=== PATIENT | female | born 1970 | race Caucasian/White ===

== ENCOUNTER 2016-07-16 18:24 | Emergency (ER) | payer OTHER ==
[~2016-07-16] VITALS: Ht 172.7 cm; Wt 56.7 kg
[2016-07-16 19:21] VITALS: BP 117/75
[2016-07-16] MEDS ORDERED: LOSARTAN-HCTZ1 EAC1 PO (19:42)
[2016-07-16] MEDS ORDERED: DICLOFENAC POTA50 M1 PO (19:43)
--- NOTE | 2016-07-16 19:47 | ED GENERAL ADULT ---
History of Present Illness General Chief Complaint: General Adult Stated Complaint: PAIN MEDICINE REQUEST Source: patient Exam Limitations: no limitations Vital Signs & Intake/Output Vital Signs & Intake/Output Vital Signs Date Time Temp Pulse Resp B/P Pulse O2 O2 Flow FiO2 Ox Delivery Rate 07/16 1921 98.2 78 18 117/75 98 Room Air ED Intake and Output 07/17 0000 07/16 1200 Intake Total Output Total Balance Patient 125 lb Weight Allergies Coded Allergies: No Known Allergies (07/16/16) Reconcile Medications Diclofenac Potassium 50 MG TABLET 1 TAB PO TIDPRN UN (Reported) Losartan/Hydrochlorothiazide (Losartan-Hctz 50-12.5 MG Tab) 50 MG-12.5 MG TABLET 1 TAB PO DAILY HTN (Reported) Oxycodone HCl/Acetaminophen (Percocet 5-325 MG Tablet) 5 MG-325 MG TABLET 1 TAB PO 4XDP PRN PAIN six...[id number] Triage Note: RECEIVED 46 YO FEMALE S/O SURGURY ON LEFT HAND 2 YEARS AGO. STILL IN PAIN. PMD SENT PT TO ED BECAUSE HE IS UNABLE TO FURTHER PRESCRIBE PAIN MEDS. PT RAN OUT OF 5 MG OXYCODONES ON SUNDAY. PT REPORTS CHRONIC L HAND PAIN Triage Nurses Notes Reviewed? yes Onset: Gradual Duration: week(s):, waxing and waning Timing: recent history Injury Environment: home Severity: moderate Modifying Factors: Improves With: rest. Worsens With: movement. Associated Symptoms: left wrist pain. "I ran out of meds." : No Patient currently breastfeeds: No HPI: 46-year-old woman with history of left wrist pain status post carpal tunnel surgery repair several years ago, presents with left wrist pain. She states that her primary care doctor no longer is able to prescribe her narcotics. She has not yet had her appointment with the pain management center. She notes that she ran out of her Percocet, "and my doctor told me to come to the emergency department." She notes no new trauma. She notes the pain has been stable. She notes her pain is usually better with Percocet as needed. She is otherwise well. Past History Travel History Traveled to [place] past 21 day No Medical History Any Pertinent Medical History? see below for history Neurological: NONE EENT: NONE Cardiovascular: NONE Respiratory: NONE Gastrointestinal: NONE Hepatic: NONE Renal: NONE Musculoskeletal: NONE Psychiatric: NONE Endocrine: NONE Surgical History Surgical History: left carpal tunnel surgery Psychosocial History What is your primary language Egyptian Tobacco Use: Current Daily Use Daily Tobacco Use Amount/Type: => 5 Cigarettes daily Family History Hx Contributory? No Review of Systems Review of Systems Constitutional: Reports: no symptoms. EENTM: Reports: no symptoms. Respiratory: Reports: no symptoms. Cardiovascular: Reports: no symptoms. GI: Reports: no symptoms. Genitourinary: Reports: no symptoms. Musculoskeletal: Reports: no symptoms. Skin: Reports: no symptoms. Neurological/Psychological: Reports: no symptoms. Hematologic/Endocrine: Reports: no symptoms. Immunologic/Allergic: Reports: no symptoms. All Other Systems: Reviewed and Negative Physical Exam Physical Exam General Appearance: well developed/nourished, mild distress Head: atraumatic, normal appearance Eyes: Bilateral: normal appearance. Neck: normal inspection, supple, full range of motion Respiratory: normal breath sounds, chest non-tender, no respiratory distress Cardiovascular: regular rate/rhythm Gastrointestinal: normal bowel sounds, soft Extremities: left wrist with Phalen and Tinel's sign positive. No deformity. Light touch intact 2+ distal pulse. Neurologic/Psych: no motor/sensory deficits, awake, alert, oriented x 3 Skin: intact, normal color, warm/dry Core Measures ACS in differential dx? No CVA/TIA Diagnosis: No Severe Sepsis Present: No Septic Shock Present: No Progress Differential Diagnoses I considered the following diagnoses in my evaluation of the patient: Chronic pain versus other Plan of Care: I gave patient a bridge prescription of Percocet. She can follow-up with her primary care doctor in the pain management clinic. Initial ED EKG: none Departure Departure Disposition: HOME OR SELF CARE Condition: Stable Clinical Impression Primary Impression: Chronic pain Referrals: SEMAJ RANDOLPH MD (PCP/Family) Departure Forms: Customer Survey General Discharge Information Prescriptions: Current Visit Scripts Oxycodone HCl/Acetaminophen (Percocet 5-325 MG Tablet) 1 TAB PO 4XDP PRN PAIN #6 TAB six...[id number] Critical Care Note Critical Care Note Critical Care Time: non-applicable
[2016-07-16] MEDS ORDERED: PERCOCET 5-3251 EACH PO (19:51)
== END 2016-07-16 19:57 ==
LOC: ERH 18:24
DX: G89.29 Other chronic pain (principal)
CPT/HCPCS: 99281

== ENCOUNTER 2016-08-31 18:40 | Emergency (ER) | payer OTHER ==
[~2016-08-31 18:40] MED LIST: DICLOFENAC POTA50 M1 PO; LOSARTAN-HCTZ1 EAC1 PO; PERCOCET 5-3251 EACH PO
[2016-08-31 19:09] VITALS: BP 113/77
[2016-08-31] MEDS ORDERED: PERCOCET 5-3251 EACH PO (20:31)
--- NOTE | 2016-08-31 20:32 | ED UPPER/LOWER EXTREMITY COMPL ---
History of Present Illness General Chief Complaint: Hand or Wrist Injury Stated Complaint: REQUESTING PAIN MEDICATION; WRIST PAIN Source: patient, old records Exam Limitations: no limitations Vital Signs & Intake/Output Vital Signs & Intake/Output Vital Signs Date Time Temp Pulse Resp B/P Pulse O2 O2 Flow FiO2 Ox Delivery Rate 08/31 1909 78 20 113/77 98 Room Air Allergies Coded Allergies: No Known Allergies (07/16/16) Reconcile Medications Diclofenac Potassium 50 MG TABLET 1 TAB PO TIDPRN UN (Reported) Losartan/Hydrochlorothiazide (Losartan-Hctz 50-12.5 MG Tab) 50 MG-12.5 MG TABLET 1 TAB PO DAILY HTN (Reported) Oxycodone HCl/Acetaminophen (Percocet 5-325 MG Tablet) 5 MG-325 MG TABLET 1 TAB PO 4XDP PRN PAIN six...[id number] Oxycodone HCl/Acetaminophen (Percocet 5-325 MG Tablet) 5 MG-325 MG TABLET 1 TAB PO 4 TIMES/DAY PRN pain Triage Note: PER PT HERE FOR PAIN MEDS FOR WRIST. CHRONIC PAIN NEEDS MORE MEDS. Triage Nurses Notes Reviewed? yes : No Patient currently breastfeeds: No HPI: Chronic left wrist pain. She is here because her primary care doctor is no longer prescribe her pain medication and she is requesting Percocet. She has previously had orthopedic surgery on her left wrist for carpal tunnel release and arthroscopic surgery on her wrist. She wears a brace occasionally. Orthopedist does not feel so they can do anything further for her and her primary care doctor was prescribing Percocet for her but is no longer able to do that. She has no recent injury or worsening pain, no numbness or weakness or neurologic symptoms. No swelling or skin surface changes. No redness. (MUSA MILTON) Past History Travel History Traveled to [place] past 21 day No Medical History Any Pertinent Medical History? see below for history Neurological: NONE EENT: NONE Cardiovascular: NONE Respiratory: NONE Gastrointestinal: NONE Hepatic: NONE Renal: NONE Musculoskeletal: NONE Psychiatric: NONE Endocrine: NONE Surgical History Surgical History: left carpal tunnel surgery Psychosocial History What is your primary language Divehi Tobacco Use: Current Daily Use Daily Tobacco Use Amount/Type: => 5 Cigarettes daily Family History Hx Contributory? No (MUSA MILTON) Review of Systems Review of Systems Constitutional: Reports: see HPI. EENTM: Reports: no symptoms. Respiratory: Reports: no symptoms. Cardiovascular: Reports: no symptoms. Gastrointestinal/Abdominal: Reports: no symptoms. Genitourinary: Reports: no symptoms. Musculoskeletal: Reports: see HPI. Skin: Reports: no symptoms. Neurological/Psychological: Reports: no symptoms. Hematologic/Endocrine: Reports: no symptoms. Immunological: Reports: no symptoms. All Other Systems: Reviewed and Negative (MUSA MILTON) Physical Exam Physical Exam General Appearance: well developed/nourished Comments: Well-developed well-nourished no apparent distress. HEENT: Atraumatic, extraocular motion intact Neck: Supple, no lymphadenopathy Back: Nontender Respiratory: No respiratory distress Extremities: No edema, full range of motion Neuro: Alert and oriented x3 Psych: Mood affect normal, normal memory normal judgment. Skin: Warm and dry, no rash on exposed skin Left wrist: skin is intact, well-healed scars to the carpal tunnel region and arthrotomy scars for arthroscopic surgery. No swelling no erythema no warmth no significant bony tenderness, no effusion. Range of motion is full. Neurovascularly intact. (MUSA MILTON) Progress Differential Diagnosis: arterial insufficiency, cellulitis, CHF, compartment syndrome, contusion, dislocation, DVT, fracture, gout, septic arthritis, sprain, tendon injury Plan of Care: Will provide 10 tablets of Percocet as per our pain management protocol and recommend that she follows up with pain management, she is scheduling an appointment in the near future (MUSA MILTON) Departure Departure Disposition: HOME OR SELF CARE Condition: Stable Clinical Impression Primary Impression: Chronic pain of left wrist Referrals: SEMAJ RANDOLPH MD (PCP/Family) Additional Instructions: Follow-up with your pain management doctor as scheduled for further pain medication Departure Forms: Customer Survey General Discharge Information Prescriptions: Current Visit Scripts Oxycodone HCl/Acetaminophen (Percocet 5-325 MG Tablet) 1 TAB PO 4 TIMES/DAY PRN pain #10 TAB (MUSA MILTON) PA/LARGE ENGINE ASSEMBLER Co-Sign Statement Statement: ED Attending supervision documentation- [] I saw and evaluated the patient. I have also reviewed all the pertinent lab results and diagnostic results. I agree with the findings and the plan of care as documented in the PA's/LARGE ENGINE ASSEMBLER's documentation. x I have reviewed the ED Record and agree with the PA's/LARGE ENGINE ASSEMBLER's documentation. [] Additions or exceptions (if any) to the PAs/LARGE ENGINE ASSEMBLER's note and plan are summarized below: [] (MARISELA GUADALUPE,ROSE MARIE)
== END 2016-08-31 20:43 ==
LOC: ERH 18:40
DX: G89.29 Other chronic pain (principal); M25.532 Pain in left wrist

== ENCOUNTER 2016-09-04 17:06 | Emergency (ER) | payer OTHER ==
[~2016-09-04] VITALS: Ht 172.7 cm; Wt 56.7 kg
[2016-09-04 17:26] VITALS: BP 116/84
--- NOTE | 2016-09-04 18:41 | ED GENERAL ADULT ---
History of Present Illness General Chief Complaint: Hand or Wrist Injury Stated Complaint: WANTS PAIN MEDS UNTIL PAIN MANAGEMENT [id number] Source: patient, old records Exam Limitations: no limitations Vital Signs & Intake/Output Vital Signs & Intake/Output Vital Signs Date Time Temp Pulse Resp B/P Pulse O2 O2 Flow FiO2 Ox Delivery Rate 09/04 1726 97.2 84 18 116/84 95 Room Air Allergies Coded Allergies: No Known Allergies (07/16/16) Reconcile Medications Diclofenac Potassium 50 MG TABLET 1 TAB PO TIDPRN UN (Reported) Losartan/Hydrochlorothiazide (Losartan-Hctz 50-12.5 MG Tab) 50 MG-12.5 MG TABLET 1 TAB PO DAILY HTN (Reported) Meloxicam (Mobic) 15 MG TABLET 1 TAB PO DAILY PRN PAIN/INFLAMMATION Oxycodone HCl/Acetaminophen (Percocet 5-325 MG Tablet) 5 MG-325 MG TABLET 1 TAB PO 4XDP PRN PAIN six...[id number] Oxycodone HCl/Acetaminophen (Percocet 5-325 MG Tablet) 5 MG-325 MG TABLET 1 TAB PO Q6H PRN PAIN Oxycodone HCl/Acetaminophen (Percocet 5-325 MG Tablet) 5 MG-325 MG TABLET 1 TAB PO 4 TIMES/DAY PRN pain Triage Note: PT STATING SHE WAS SENT TO ED BY ORTHO FOR PAIN MEDS. PAIN MANAGEMENT APT IN 2 WEEKS "BUT I CANT WAIT" Triage Nurses Notes Reviewed? yes : No Patient currently breastfeeds: No HPI: Patient is a 46-year-old female presents complaining of chronic left wrist pain. Patient reports she had carpal tunnel surgery at [facility] 1-2 years ago. Patient had follow-up today with Dr. Miller, had x-rays, and was told that he could not prescribe her pain medication unless there were performing further surgery. Patient scheduled to see pain management next week. Patient was seen in the emergency department last week and prescribed Percocet which she reports was providing good pain relief. Pain is continuous, has been worse over the past 1 week. Pain has been severe. Mild paresthesias intermittently. Patient is right-hand dominant. Patient has been wearing a wrist brace. Denies further trauma. (ANDREEA ESCOBAR,MUSA) Past History Travel History Traveled to [place] past 21 day No Medical History Any Pertinent Medical History? 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 No (MUSA AMBROSIO) Review of Systems Review of Systems Constitutional: Denies: fever. Respiratory: Denies: short of breath. Cardiovascular: Denies: chest pain. GI: Denies: abdominal pain, nausea, vomiting. Musculoskeletal: Reports: see HPI. Skin: Reports: no symptoms. Neurological/Psychological: Reports: paresthesia (left wrist). Hematologic/Endocrine: Denies: bruising, bleeding. Immunologic/Allergic: Reports: no symptoms. (MUSA AMBROSIO) Physical Exam Physical Exam General Appearance: well developed/nourished, alert, awake Head: atraumatic Eyes: Bilateral: normal appearance. Ears, Nose, Throat: hearing grossly normal Neck: normal inspection, full range of motion Respiratory: no respiratory distress Extremities: normal inspection, normal range of motion, no edema Neurologic/Psych: awake, alert, oriented x 3 Skin: intact, normal color, warm/dry Core Measures ACS in differential dx? No CVA/TIA Diagnosis: No Severe Sepsis Present: No Septic Shock Present: No (MUSA AMBROSIO) Progress Differential Diagnoses I considered the following diagnoses in my evaluation of the patient: Chronic pain, fracture, avascular necrosis, malunion Plan of Care: Patient reports she had imaging today at her orthopedist office. Further imaging deferred. Initial ED EKG: none (MUSA AMBROSIO) Departure Departure Time of Disposition: 1845 Disposition: HOME OR SELF CARE Condition: Stable Clinical Impression Primary Impression: Chronic pain of left wrist Referrals: SEMAJ RANDOLPH MD (PCP/Family) Additional Instructions: Follow-up with the painter sign maintenance next week as scheduled. Departure Forms: Customer Survey General Discharge Information Prescriptions: Current Visit Scripts Meloxicam (Mobic) 1 TAB PO DAILY PRN PAIN/INFLAMMATION #10 TAB Oxycodone HCl/Acetaminophen (Percocet 5-325 MG Tablet) 1 TAB PO Q6H PRN PAIN #10 TAB (MUSA AMBROSIO) PA/DEPUTY CITY CLERK Co-Sign Statement Statement: ED Attending supervision documentation- [] I saw and evaluated the patient. I have also reviewed all the pertinent lab results and diagnostic results. I agree with the findings and the plan of care as documented in the PA's/DEPUTY CITY CLERK's documentation. [X] I have reviewed the ED Record and agree with the PA's/DEPUTY CITY CLERK's documentation. [] Additions or exceptions (if any) to the PAs/DEPUTY CITY CLERK's note and plan are summarized below: [] (EMANI GUADALUPE,JOHN Reich) Critical Care Note Critical Care Note Critical Care Time: non-applicable (MUSA AMBROSIO)
[2016-09-04] MEDS ORDERED: MOBIC15 M1 PO (18:47)
[2016-09-04] MEDS ORDERED: PERCOCET 5-3251 EACH PO (18:47)
== END 2016-09-04 18:57 ==
LOC: ERH 17:06
DX: G89.29 Other chronic pain (principal); M25.532 Pain in left wrist

== ENCOUNTER 2016-09-10 11:52 | Emergency (ER) | payer OTHER ==
[~2016-09-10] VITALS: Ht 172.7 cm; Wt 56.7 kg
[~2016-09-10 11:52] MED LIST changes: +MOBIC15 M1 PO
[2016-09-10 12:16] VITALS: BP 117/78
--- NOTE | 2016-09-10 12:27 | ED GENERAL ADULT ---
History of Present Illness General Chief Complaint: General Adult Stated Complaint: MED REFILL Source: patient, old records Exam Limitations: no limitations Vital Signs & Intake/Output Vital Signs & Intake/Output Vital Signs Date Time Temp Pulse Resp B/P Pulse O2 O2 Flow FiO2 Ox Delivery Rate 09/10 1234 Room Air Room Air 09/10 1216 98.1 74 18 117/78 100 Room Air Allergies Coded Allergies: No Known Allergies (07/16/16) Reconcile Medications Diclofenac Potassium 50 MG TABLET 1 TAB PO TIDPRN UN (Reported) Losartan/Hydrochlorothiazide (Losartan-Hctz 50-12.5 MG Tab) 50 MG-12.5 MG TABLET 1 TAB PO DAILY HTN (Reported) Meloxicam (Mobic) 15 MG TABLET 1 TAB PO DAILY PRN PAIN/INFLAMMATION Oxycodone HCl/Acetaminophen (Percocet 5-325 MG Tablet) 5 MG-325 MG TABLET 1 TAB PO 4XDP PRN PAIN six...[id number] Oxycodone HCl/Acetaminophen (Percocet 5-325 MG Tablet) 5 MG-325 MG TABLET 1-2 TAB PO Q6P PRN PAIN Oxycodone HCl/Acetaminophen (Percocet 5-325 MG Tablet) 5 MG-325 MG TABLET 1 TAB PO Q6H PRN PAIN Oxycodone HCl/Acetaminophen (Percocet 5-325 MG Tablet) 5 MG-325 MG TABLET 1 TAB PO 4 TIMES/DAY PRN pain Triage Note: PT TO ED FOR PERCOCET REFILL. SEEN HERE SUNDAY FOR SAME. Triage Nurses Notes Reviewed? yes : No Patient currently breastfeeds: No HPI: Patient presents for refill for her Percocet. Patient has an appointment to see pain management on Sunday. Patient has chronic left hand and left wrist pain. The pain is 10 out of 10 and is throbbing. With the Percocet the pain decreases to a 6 out of 10 but then it comes back when the Percocet wears off. There is no radiation except as noted above. No fevers or chills. Past History Travel History Traveled to [place] past 21 day No Medical History Any Pertinent Medical History? 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 No Review of Systems Review of Systems Constitutional: Reports: no symptoms. Respiratory: Reports: no symptoms. Cardiovascular: Reports: no symptoms. Musculoskeletal: Reports: see HPI. Immunologic/Allergic: Reports: no symptoms. Physical Exam Physical Exam General Appearance: well developed/nourished, alert, awake Head: atraumatic, normal appearance Eyes: Bilateral: PERRL, EOMI. Neck: normal inspection, supple, full range of motion Respiratory: normal breath sounds, chest non-tender, no respiratory distress, lungs clear Cardiovascular: regular rate/rhythm, normal peripheral pulses Neurologic/Psych: no motor/sensory deficits, awake, alert, oriented x 3, normal gait, normal mood/affect Core Measures ACS in differential dx? No CVA/TIA Diagnosis: No Severe Sepsis Present: No Septic Shock Present: No Progress Differential Diagnoses I considered the following diagnoses in my evaluation of the patient: [Pain med refill] Plan of Care: Refill pain meds Initial ED EKG: none Departure Departure Disposition: HOME OR SELF CARE Condition: Stable Clinical Impression Primary Impression: Medication refill Referrals: SEMAJ RANDOLPH MD (PCP/Family) Additional Instructions: FOLLOW UP WITH PAIN MANAGEMENT ON SUNDAY Departure Forms: Customer Survey General Discharge Information Prescriptions: Current Visit Scripts Oxycodone HCl/Acetaminophen (Percocet 5-325 MG Tablet) 1-2 TAB PO Q6P PRN PAIN #24 TAB Critical Care Note Critical Care Note Critical Care Time: non-applicable
[2016-09-10] MEDS ORDERED: PERCOCET 5-3251 EACH PO (12:28)
== END 2016-09-10 12:34 ==
LOC: ERH 11:52
DX: Z76.0 Encounter for issue of repeat prescription (principal)

== ENCOUNTER 2016-09-18 17:17 | Emergency (ER) | payer OTHER ==
[2016-09-18 17:56] VITALS: BP 111/74
[2016-09-18] MEDS ORDERED: PERCOCET 5-3251 EACH PO (18:42)
--- NOTE | 2016-09-18 18:44 | ED GENERAL ADULT ---
History of Present Illness General Chief Complaint: General Adult Stated Complaint: "PAIN MANAGMENT" Source: patient, old records Exam Limitations: no limitations Vital Signs & Intake/Output Vital Signs & Intake/Output Vital Signs Date Time Temp Pulse Resp B/P Pulse O2 O2 Flow FiO2 Ox Delivery Rate 09/18 1756 73 22 111/74 98 Room Air Allergies Coded Allergies: No Known Allergies (07/16/16) Reconcile Medications Losartan/Hydrochlorothiazide (Losartan-Hctz 50-12.5 MG Tab) 50 MG-12.5 MG TABLET 1 TAB PO DAILY HTN (Reported) Oxycodone HCl/Acetaminophen (Percocet 5-325 MG Tablet) 5 MG-325 MG TABLET 1-2 TAB PO Q6P PRN PAIN Triage Note: PER PT IN PAIN MANAGEMENT BUT THEY WONT PRESCRIBE PAIN MEDS UNTIL I HAVE AN MRI SOMETIME Triage Nurses Notes Reviewed? yes : No Patient currently breastfeeds: No HPI: Patient presents for a refill for her pain medication. Patient has chronic pain in her left wrist. Patient saw pain management however they want to get an MRI prior to treating her pain. Patient is scheduled for an MRI later this week. The pain is 10 out of 10 and decreases when she takes pain medication. There is no radiation. The pain is burning and throbbing in nature. Past History Travel History Traveled to [place] past 21 day No Medical History Any Pertinent Medical History? 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 No Review of Systems Review of Systems Constitutional: Reports: no symptoms. Respiratory: Reports: no symptoms. Cardiovascular: Reports: no symptoms. Musculoskeletal: Reports: see HPI, joint pain. Neurological/Psychological: Reports: no symptoms. Immunologic/Allergic: Reports: no symptoms. Physical Exam Physical Exam General Appearance: well developed/nourished, alert, awake, anxious, mild distress Eyes: Bilateral: PERRL, EOMI. Neck: normal inspection, supple Respiratory: normal breath sounds, chest non-tender, no respiratory distress, lungs clear Gastrointestinal: normal bowel sounds, soft, non-tender, no organomegaly Extremities: normal inspection, normal capillary refill, normal range of motion, no edema Neurologic/Psych: no motor/sensory deficits, awake, alert, oriented x 3, normal mood/affect Skin: intact, normal color, warm/dry Core Measures ACS in differential dx? No CVA/TIA Diagnosis: No Severe Sepsis Present: No Septic Shock Present: No Progress Differential Diagnoses I considered the following diagnoses in my evaluation of the patient: [ Medication refill] Plan of Care: Refill medics Initial ED EKG: none Departure Departure Disposition: HOME OR SELF CARE Condition: Stable Clinical Impression Primary Impression: Pain management Referrals: SEMAJ RANDOLPH MD (PCP/Family) Additional Instructions: FOLLOW UP FOR YOUR MRI AND WITH PAIN MANAGEMENT Departure Forms: Customer Survey General Discharge Information Prescriptions: Current Visit Scripts Oxycodone HCl/Acetaminophen (Percocet 5-325 MG Tablet) 1-2 TAB PO Q6P PRN PAIN #20 TAB Critical Care Note Critical Care Note Critical Care Time: non-applicable
== END 2016-09-18 18:47 ==
LOC: ERH 17:17
DX: Z76.0 Encounter for issue of repeat prescription (principal)
CPT/HCPCS: 99281

== ENCOUNTER 2016-10-01 11:17 | Emergency (ER) | payer OTHER ==
[2016-10-01 11:22] VITALS: BP 122/79
--- NOTE | 2016-10-01 11:30 | ED HAND/WRIST INJURY COMPLAINT ---
History of Present Illness General Chief Complaint: General Adult Stated Complaint: NEEDS PAIN MEDS Vital Signs & Intake/Output Vital Signs & Intake/Output Vital Signs Date Time Temp Pulse Resp B/P Pulse O2 O2 Flow FiO2 Ox Delivery Rate 10/01 1122 98.2 88 20 122/79 Allergies Coded Allergies: No Known Allergies (07/16/16) Reconcile Medications Losartan/Hydrochlorothiazide (Losartan-Hctz 50-12.5 MG Tab) 50 MG-12.5 MG TABLET 1 TAB PO DAILY HTN (Reported) Oxycodone HCl/Acetaminophen (Percocet 5-325 MG Tablet) 5 MG-325 MG TABLET 1-2 TAB PO Q6P PRN PAIN Triage Note: PER PT HERE FOR NEW PAIN MEDS CREAM THEY GAVE DOESN'T WORK : No Patient currently breastfeeds: No Past History Travel History Traveled to [place] past 21 day No Medical History Neurological: NONE EENT: NONE Cardiovascular: NONE Respiratory: NONE Gastrointestinal: NONE Hepatic: NONE Renal: NONE Musculoskeletal: NONE Psychiatric: NONE Endocrine: NONE Blood Disorders: NONE Cancer(s): NONE 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
[2016-10-01] MEDS ORDERED: PERCOCET 5-3251 EACH PO (11:36)
--- NOTE | 2016-10-01 11:37 | ED GENERAL ADULT ---
History of Present Illness General Chief Complaint: General Adult Stated Complaint: NEEDS PAIN MEDS Source: patient, old records Exam Limitations: no limitations Vital Signs & Intake/Output Vital Signs & Intake/Output Vital Signs Date Time Temp Pulse Resp B/P Pulse O2 O2 Flow FiO2 Ox Delivery Rate 10/01 1122 98.2 88 20 122/79 Allergies Coded Allergies: No Known Allergies (07/16/16) Reconcile Medications Losartan/Hydrochlorothiazide (Losartan-Hctz 50-12.5 MG Tab) 50 MG-12.5 MG TABLET 1 TAB PO DAILY HTN (Reported) Oxycodone HCl/Acetaminophen (Percocet 5-325 MG Tablet) 5 MG-325 MG TABLET 1-2 TAB PO Q6P PRN PAIN Oxycodone HCl/Acetaminophen (Percocet 5-325 MG Tablet) 5 MG-325 MG TABLET 1-2 TAB PO Q6P PRN PAIN Triage Note: PER PT HERE FOR NEW PAIN MEDS CREAM THEY GAVE DOESN'T WORK Triage Nurses Notes Reviewed? yes : No Patient currently breastfeeds: No HPI: Patient presents requesting a refill for pain medication. Patient has severe pain to her left wrist. Patient is seen pain management however they will not prescribe her pain medications until after they get the results of her MRI. Patient has been using some numbing gel without any relief. The pain is 10 out of 10 constant. There is no radiation of pain. The pain increased with movement. Past History Travel History Traveled to [place] past 21 day No Medical History Any Pertinent Medical History? 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 No Review of Systems Review of Systems Constitutional: Reports: no symptoms. Respiratory: Reports: no symptoms. Cardiovascular: Reports: no symptoms. Musculoskeletal: Reports: see HPI. Neurological/Psychological: Reports: no symptoms. Immunologic/Allergic: Reports: no symptoms. Physical Exam Physical Exam General Appearance: well developed/nourished, alert, awake, mild distress Eyes: Bilateral: PERRL, EOMI. Respiratory: normal breath sounds, chest non-tender, no respiratory distress, lungs clear Cardiovascular: regular rate/rhythm, normal peripheral pulses Neurologic/Psych: no motor/sensory deficits, awake, alert, oriented x 3, normal gait, normal mood/affect Core Measures ACS in differential dx? No CVA/TIA Diagnosis: No Severe Sepsis Present: No Septic Shock Present: No Progress Differential Diagnoses I considered the following diagnoses in my evaluation of the patient: [Narcotic refill] Plan of Care: Refill meds and then pain management follow-up Initial ED EKG: none Departure Departure Disposition: HOME OR SELF CARE Condition: Stable Clinical Impression Primary Impression: Medication refill Referrals: SEMAJ RANDOLPH MD (PCP/Family) Additional Instructions: FOLLOW UP WITH PAIN MANAGEMENT Departure Forms: Customer Survey General Discharge Information Prescriptions: Current Visit Scripts Oxycodone HCl/Acetaminophen (Percocet 5-325 MG Tablet) 1-2 TAB PO Q6P PRN PAIN #20 TAB Critical Care Note Critical Care Note Critical Care Time: non-applicable
== END 2016-10-01 11:39 ==
LOC: ERH 11:17
DX: Z76.0 Encounter for issue of repeat prescription (principal)
CPT/HCPCS: 99281

== ENCOUNTER 2016-10-08 17:00 | Emergency (ER) | payer OTHER ==
[~2016-10-08] VITALS: Ht 172.7 cm; Wt 56.7 kg
[2016-10-08 17:19] VITALS: BP 115/81
--- NOTE | 2016-10-08 19:07 | ED GENERAL ADULT ---
History of Present Illness General Chief Complaint: General Adult Stated Complaint: PT NEED RX UNTIL SHE GOES TO APPOINTMENT Source: patient Exam Limitations: no limitations Vital Signs & Intake/Output Vital Signs & Intake/Output Vital Signs Date Time Temp Pulse Resp B/P B/P Pulse O2 O2 Flow FiO2 Mean Ox Delivery Rate 10/08 1859 Room Air 10/08 1719 98.4 88 20 115/81 98 Room Air ED Intake and Output 10/09 0000 10/08 1200 Intake Total Output Total Balance Patient 125 lb Weight Weight Reported by Patient Measurement Method Allergies Coded Allergies: No Known Allergies (10/08/16) Reconcile Medications Losartan/Hydrochlorothiazide (Losartan-Hctz 50-12.5 MG Tab) 50 MG-12.5 MG TABLET 1 TAB PO DAILY HTN (Reported) Oxycodone HCl/Acetaminophen (Percocet 5-325 MG Tablet) 5 MG-325 MG TABLET 1 TAB PO 4XDP PRN PAIN four...[id number] Oxycodone HCl/Acetaminophen (Percocet 5-325 MG Tablet) 5 MG-325 MG TABLET 1-2 TAB PO Q6P PRN PAIN Oxycodone HCl/Acetaminophen (Percocet 5-325 MG Tablet) 5 MG-325 MG TABLET 1-2 TAB PO Q6P PRN PAIN Triage Note: TRIAGE: PT TO ER REQUESTING REFILL OF PRESCRIPTION PAIN MEDS. RAN OUT OF "PERCOCET 5'S" NOON TODAY. IS DUE TO START WITH PAIN MANAGEMENT IN 2 WEEKS. Triage Nurses Notes Reviewed? yes Onset: Gradual Duration: week(s):, waxing and waning Timing: recent history Injury Environment: home Severity: moderate Associated Symptoms: chronic pain in left arm : No Patient currently breastfeeds: No HPI: 46 yo woman h/o chronic pain in left arm, presents seeking medication refill. She notes no new injury, but that, "My primary care doctor won't re-fill any of the medications any more.... I have an appointment with pain management in 2 weeks." She notes that she is otherwise well. Past History Travel History Traveled to [place] past 21 day No Medical History Any Pertinent Medical History? 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 No Review of Systems Review of Systems Constitutional: Reports: no symptoms. EENTM: Reports: no symptoms. Respiratory: Reports: no symptoms. Cardiovascular: Reports: no symptoms. GI: Reports: no symptoms. Genitourinary: Reports: no symptoms. Musculoskeletal: Reports: no symptoms. Skin: Reports: no symptoms. Neurological/Psychological: Reports: no symptoms. Hematologic/Endocrine: Reports: no symptoms. Immunologic/Allergic: Reports: no symptoms. All Other Systems: Reviewed and Negative Physical Exam Physical Exam General Appearance: well developed/nourished, no apparent distress Head: atraumatic, normal appearance Eyes: Bilateral: normal appearance. Ears, Nose, Throat: normal pharynx Neck: normal inspection Respiratory: normal breath sounds Cardiovascular: regular rate/rhythm Gastrointestinal: normal bowel sounds, soft, non-tender, no organomegaly Back: normal inspection Extremities: normal inspection, normal capillary refill, normal range of motion, no effusion, no swelling, mild diffuse pain with ROM of left wrist. no deformity. 2+ distal pulses. Neurologic/Psych: no motor/sensory deficits, awake, alert, oriented x 3 Skin: intact, normal color, warm/dry Core Measures ACS in differential dx? No CVA/TIA Diagnosis: No Severe Sepsis Present: No Septic Shock Present: No Progress Differential Diagnoses I considered the following diagnoses in my evaluation of the patient: chronic pain, carpal tunnel vs other. Plan of Care: gave small rx for percocet... encouraged follow up with pain management. Initial ED EKG: none Departure Departure Disposition: HOME OR SELF CARE Condition: Stable Clinical Impression Primary Impression: Chronic pain Referrals: SEMAJ RANDOLPH MD (PCP/Family) Departure Forms: Customer Survey General Discharge Information Prescriptions: Current Visit Scripts Oxycodone HCl/Acetaminophen (Percocet 5-325 MG Tablet) 1 TAB PO 4XDP PRN PAIN #4 TAB four...[id number] Critical Care Note Critical Care Note Critical Care Time: non-applicable
[2016-10-08] MEDS ORDERED: PERCOCET 5-3251 EACH PO (19:23)
== END 2016-10-08 19:26 ==
LOC: ERH 17:00
DX: G89.29 Other chronic pain (principal)
CPT/HCPCS: 99281

== ENCOUNTER 2016-11-05 14:17 | Emergency (ER) | payer OTHER ==
[2016-11-05 14:21] VITALS: BP 117/85
[2016-11-05] MEDS ORDERED: PERCOCET 5-3251 EACH PO (14:33)
--- NOTE | 2016-11-05 14:35 | ED GENERAL ADULT ---
History of Present Illness General Chief Complaint: General Adult Stated Complaint: PAIN MED REFILL Source: patient, old records Exam Limitations: no limitations Vital Signs & Intake/Output Vital Signs & Intake/Output Vital Signs Date Time Temp Pulse Resp B/P B/P Pulse O2 O2 Flow FiO2 Mean Ox Delivery Rate 11/05 1421 98.0 109 16 117/85 93 Room Air Allergies Coded Allergies: No Known Allergies (10/08/16) Reconcile Medications Losartan/Hydrochlorothiazide (Losartan-Hctz 50-12.5 MG Tab) 50 MG-12.5 MG TABLET 1 TAB PO DAILY HTN (Reported) Oxycodone HCl/Acetaminophen (Percocet 5-325 MG Tablet) 5 MG-325 MG TABLET 1 TAB PO 4XDP PRN PAIN four...[id number] Oxycodone HCl/Acetaminophen (Percocet 5-325 MG Tablet) 5 MG-325 MG TABLET 1-2 TAB PO Q6P PRN PAIN Oxycodone HCl/Acetaminophen (Percocet 5-325 MG Tablet) 5 MG-325 MG TABLET 1-2 TAB PO Q6P PRN PAIN Triage Note: PT HERE FOR MED REFILL OF PAIN MEDICATION. Triage Nurses Notes Reviewed? yes : No Patient currently breastfeeds: No HPI: Patient presents for refill for her Percocet. Patient was unable to go to her pain management appointment because of work so her next appointment is not until this Sunday. Patient ran out of the Percocet. Patient is now having severe pain. There are no fevers or chills. The pain is decreased when she takes Percocet. The pain that increases when she went out of Percocet. Past History Travel History Traveled to [place] past 21 day No Medical History Any Pertinent Medical History? 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 No Review of Systems Review of Systems Constitutional: Reports: no symptoms. Respiratory: Reports: no symptoms. Cardiovascular: Reports: no symptoms. GI: Reports: no symptoms. Musculoskeletal: Reports: see HPI. Neurological/Psychological: Reports: no symptoms. Immunologic/Allergic: Reports: no symptoms. Physical Exam Physical Exam General Appearance: well developed/nourished, alert, awake, anxious Head: atraumatic Eyes: Bilateral: PERRL, EOMI. Neck: normal inspection, supple Respiratory: normal breath sounds, chest non-tender, no respiratory distress, lungs clear Cardiovascular: regular rate/rhythm, normal peripheral pulses Neurologic/Psych: no motor/sensory deficits, awake, alert, oriented x 3, normal gait, normal mood/affect Core Measures ACS in differential dx? No CVA/TIA Diagnosis: No Severe Sepsis Present: No Septic Shock Present: No Progress Differential Diagnoses I considered the following diagnoses in my evaluation of the patient: [ Medication refill] Plan of Care: Refill medicine Initial ED EKG: none Departure Departure Disposition: HOME OR SELF CARE Condition: Stable Clinical Impression Primary Impression: Medication refill Referrals: SEMAJ RANDOLPH MD (PCP/Family) Additional Instructions: FOLLOW UP WITH PAIN MANAGEMENT Departure Forms: Customer Survey General Discharge Information Prescriptions: Current Visit Scripts Oxycodone HCl/Acetaminophen (Percocet 5-325 MG Tablet) 1-2 TAB PO Q6P PRN PAIN #20 TAB Critical Care Note Critical Care Note Critical Care Time: non-applicable
== END 2016-11-05 14:44 ==
LOC: ERH 14:17
DX: Z76.0 Encounter for issue of repeat prescription (principal)
CPT/HCPCS: 99281

== ENCOUNTER 2016-11-16 19:48 | Emergency (ER) | payer OTHER ==
[2016-11-16 20:18] VITALS: BP 124/85
--- NOTE | 2016-11-16 20:42 | ED GENERAL ADULT ---
History of Present Illness General Chief Complaint: General Adult Stated Complaint: MED REFILL Source: patient Exam Limitations: no limitations Vital Signs & Intake/Output Vital Signs & Intake/Output Vital Signs Date Time Temp Pulse Resp B/P B/P Pulse O2 O2 Flow FiO2 Mean Ox Delivery Rate 11/16 2017 98.1 78 22 124/85 98 Allergies Coded Allergies: No Known Allergies (10/08/16) Reconcile Medications Diclofenac Sodium (Voltaren-XR) 100 MG TAB.ER.24H 1 TAB PO DAILY PAIN Losartan/Hydrochlorothiazide (Losartan-Hctz 50-12.5 MG Tab) 50 MG-12.5 MG TABLET 1 TAB PO DAILY HTN (Reported) Oxycodone HCl/Acetaminophen (Percocet 5-325 MG Tablet) 5 MG-325 MG TABLET 1 TAB PO 4XDP PRN PAIN four...[id number] Oxycodone HCl/Acetaminophen (Percocet 5-325 MG Tablet) 5 MG-325 MG TABLET 1-2 TAB PO Q6P PRN PAIN Oxycodone HCl/Acetaminophen (Percocet 5-325 MG Tablet) 5 MG-325 MG TABLET 1-2 TAB PO Q6P PRN PAIN Oxycodone HCl/Acetaminophen (Percocet 5-325 MG Tablet) 5 MG-325 MG TABLET 1-2 TAB PO Q6P PRN PAIN Triage Note: PER PT STILL NOT ABLE OT GO TO PAIN MANAGEMENT NEED REFILLS Triage Nurses Notes Reviewed? yes Onset: Abrupt Duration: week(s): Timing: recent history : No Patient currently breastfeeds: No HPI: 11/16/16 9 PM Patient presented to the emergency department requesting opiate analgesics for pain. She's had multiple prior visits to the emergency room for opiate analgesics. She says she has chronic left wrist pain and is currently and in pain management, but is unable to get medications yet. I discussed analgesic options with her. We will try a different nonsteroidal. The onset of the symptoms of been abrupt the duration has been for months, the severity is significant as her symptoms required her to come to the emergency department for care. She complains predominantly of left wrist pain. Past History Travel History Traveled to [place] past 21 day No Medical History Any Pertinent Medical History? 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 No Review of Systems Review of Systems Constitutional: Denies: fever. EENTM: Reports: no symptoms. Respiratory: Denies: short of breath. Cardiovascular: Denies: chest pain. GI: Denies: abdominal pain. Genitourinary: Reports: no symptoms. Musculoskeletal: Reports: joint pain. Skin: Denies: rash. Neurological/Psychological: Reports: no symptoms. Hematologic/Endocrine: Reports: no symptoms. Physical Exam Physical Exam General Appearance: alert, awake, anxious, mild distress Head: atraumatic, normal appearance Eyes: Bilateral: normal appearance, PERRL, EOMI. Ears, Nose, Throat: normal ENT inspection Neck: supple Respiratory: normal breath sounds, chest non-tender, no respiratory distress Cardiovascular: regular rate/rhythm Peripheral Pulses: 4+ radial (R), 4+ radial (L) Extremities: decreased range of motion left wrist Neurologic/Psych: no motor/sensory deficits, awake, alert, oriented x 3 Skin: intact, normal color, warm/dry Core Measures ACS in differential dx? No CVA/TIA Diagnosis: No Severe Sepsis Present: No Septic Shock Present: No Progress Differential Diagnoses I considered the following diagnoses in my evaluation of the patient: [Arthritis , carpal tunnel syndrome, Lyme disease, chronic pain, opiate dependency] Plan of Care: Follow-up with pain management. Take the Voltaren as directed. Initial ED EKG: none Departure Departure Time of Disposition: 208 Disposition: HOME OR SELF CARE Condition: Stable Clinical Impression Primary Impression: Chronic pain of left wrist Referrals: SEMAJ RANDOLPH MD (PCP/Family) Departure Forms: Customer Survey General Discharge Information Prescriptions: Current Visit Scripts Diclofenac Sodium (Voltaren-XR) 1 TAB PO DAILY #10 TAB Critical Care Note Critical Care Note Critical Care Time: non-applicable
[2016-11-16] MEDS ORDERED: VOLTAREN-XR100 M1 PO (21:10)
== END 2016-11-16 21:10 ==
LOC: ERH 19:48
DX: G89.29 Other chronic pain (principal); M25.532 Pain in left wrist
CPT/HCPCS: 99281